=== PATIENT | male | born 1990 | race Caucasian/White ===

== ENCOUNTER 2022-08-17 14:44 | Emergency (ER) | payer OTHER ==
[~2022-08-17] VITALS: Ht 180.3 cm; Wt 97.5 kg
[2022-08-17] MEDS ORDERED: BENADRYL25 MG PO (17:11)
== END 2022-08-17 17:14 | disposition home or self-care (01) ==
LOC: ER 14:44
DX: T78.1XXA Other adverse food reactions, not elsewhere classified, initial encounter (principal); J45.909 Unspecified asthma, uncomplicated; E78.00 Pure hypercholesterolemia, unspecified; Z91.018 Allergy to other foods